=== PATIENT | female | born 1925 | race Caucasian/White ===

== ENCOUNTER 2016-11-05 11:06 | Inpatient (IN) | payer MEDICARE, OTHER ==
[~2016-11-05] VITALS: Ht 165.1 cm; Wt 57.0 kg
[~2016-11-05 11:06] MED LIST: LACTATED RINGER'S 1000 ML INJ 1,000 ML IV ONE; LIDOCAINE HCL 1% PF 5 ML AMPULE OTHER ONE; MIDAZOLAM HCL 2 MG/2 ML VIAL IV ONE; PHENYLEPH/NS 1000 MCG/10 ML SYR IV ONE; PROPOFOL 200 MG/20 ML AMP IV ONE; ROCURONIUM INJ 50 MG/5 ML SYRINGE IV PUSH ONE
[2016-11-05] MEDS ORDERED: ROPIVACAINE 0.5% PF INJ 30 ML VIAL NERV BLOCK ONE (11:50)
[2016-11-05] MEDS ORDERED: ROCURONIUM INJ 50 MG/5 ML SYRINGE IV PUSH ONE (12:00)
[2016-11-05] MEDS ORDERED: LIDOCAINE HCL 1% PF 5 ML AMPULE OTHER ONE (12:00)
[2016-11-05] MEDS ORDERED: PROPOFOL 200 MG/20 ML AMP IV ONE (12:00)
[2016-11-05] MEDS ORDERED: LACTATED RINGER'S 1000 ML INJ 1,000 ML IV ONE (12:00)
[2016-11-05] MEDS ORDERED: BUPIVACAINE/EPINEPHRINE 0.5% PF 30 ML VIAL INFIL ONE (12:00)
[2016-11-05] MEDS ORDERED: PHENYLEPH/NS 1000 MCG/10 ML SYR IV ONE (12:00)
[2016-11-05] MEDS ORDERED: MIDAZOLAM HCL 2 MG/2 ML VIAL IV ONE (12:00)
[2016-11-05] MEDS ORDERED: METF500T PO (12:01)
[2016-11-05] MEDS ORDERED: ATOR40TA16 PO (12:01)
[2016-11-05] MEDS ORDERED: EMPA1TAB5 PO (12:01)
[2016-11-05] MEDS ORDERED: GLIP10TA6 PO (12:01)
[2016-11-05] MEDS ORDERED: VITA100T65 PO (12:02)
[2016-11-05] MEDS ORDERED: HYDR25TA5 PO (12:02)
[2016-11-05] MEDS ORDERED: META48.53 PO (12:02)
[2016-11-05] MEDS ORDERED: WARF-58 PO (12:08)
[2016-11-05] MEDS ORDERED: VITACAP7 PO (12:08)
[2016-11-05] MEDS ORDERED: CALC1TAB12 PO (12:08)
[2016-11-05] MEDS ORDERED: BIOT10TA PO (12:08)
[2016-11-05] MEDS ORDERED: VITA250T3 PO (12:08)
[2016-11-05] MEDS ORDERED: RISE1TAB PO (12:08)
[2016-11-05] MEDS ORDERED: WARF-20 PO (12:08)
[2016-11-05] MEDS ORDERED: SODIUM CHLORIDE 0.9% INJ 100 ML ONE (12:14)
[2016-11-05] MEDS ORDERED: ceFAZolin INJ 1,000 MG VIAL ONE (12:14)
[2016-11-05 12:29] LABS: AUTOMATED NEUTROPHIL # 4.6 TH/MM3 (1.8-7.7); BASOPHIL # 0.1 TH/MM3 (0-0.2); BASOPHIL % 0.9 % (0.0-2.0); EOSINOPHIL % 0.8 % (0.0-4.0); HEMATOCRIT 33.2 % (35.0-46.0); HEMO FLAGS DIFF FINAL; LYMPH % 13.5 % (9.0-44.0); LYMPHOCYTE # 0.8 TH/MM3 (1.0-4.8); MEAN CELL VOLUME 88.4 FL (80.0-100.0); MEAN CORPUSCULAR HEMOGLOBIN 28.4 PG (27.0-34.0); MEAN CORPUSCULAR HGB CONC 32.1 % (32.0-36.0); NEUT % 77.8 % (16.0-70.0); PLATELET COUNT 287 TH/MM3 (150-450); RED BLOOD COUNT 3.75 MIL/MM3 (4.00-5.30); RED CELL DISTRIBUTION WIDTH 14.5 % (11.6-17.2)
[2016-11-05 12:39] LABS: APTT (PATIENT) 30.4 SEC (24.3-30.1); INTERNATIONAL NORMALIZED RATIO 1.1 RATIO; PROTHROMBIN TIME - PATIENT 12.2 SEC (9.8-11.6)
[2016-11-05 12:52] LABS: BICARBONATE 24.3 MEQ/L (21.0-32.0)
[2016-11-05] MEDS ORDERED: LACTATED RINGER'S 1000 ML INJ 1,000 ML ONE (13:08)
[2016-11-05] MEDS ORDERED: ACETAMINOPHEN 1000 MG/100 ML 100 ML IV ONE (13:09)
[2016-11-05] MEDS ORDERED: FAMOTIDINE 20 MG/2 ML VIAL ONE (13:26)
[2016-11-05] MEDS ORDERED: ceFAZolin 1,000 MG/NS 100 ML IV SCH ×2 (13:45)
[2016-11-05] MEDS ORDERED: POVIDONE IODINE 5% (ANTISEPSIS KIT) 4 APPLICATIONS EACH NARE PRN (13:45)
[2016-11-05] MEDS ORDERED: CHLORHEXIDINE GLUCONATE 2 % 1 PACK (2 CLOTHS) TOPICAL PRN (13:45)
[2016-11-05] MEDS ORDERED: SODIUM CHLORID 0.9% 500 ML IV PRN (13:45)
[2016-11-05] MEDS ORDERED: INSULIN HUMAN REGULAR 1,000 UNITS/10 ML VIAL SQ PRN (13:45)
[2016-11-05] MEDS ORDERED: METOPROLOL TARTRATE 25 MG TAB PO PRN (13:45)
[2016-11-05] MEDS ORDERED: LACTATED RINGER'S 1000 ML IV PRN (13:45)
[2016-11-05] MEDS ORDERED: DO NOT ADM ANY ANTICOAGULANT DRUGS PRN (15:04)
[2016-11-05] MEDS ORDERED: SODIUM CHLORIDE 0.9% FLUSH 10 ML FLUSH IV FLUSH PRN (16:30)
[2016-11-05] MEDS ORDERED: GLUCAGON 1 MG/ML VIAL OTHER PRN (16:45)
[2016-11-05] MEDS ORDERED: PLEASE DISCONTINUE PREVIOUS SUPPLEMENTAL SCALE INSULIN ORDERS ONE (16:45)
[2016-11-05] MEDS ORDERED: DEXTROSE 50% IN WATER 50 ML VIAL(D50) IV PUSH PRN (16:45)
[2016-11-05] MEDS ORDERED: MAGNESIUM HYDROXIDE SUSP 30 ML CUP PO PRN (16:45)
[2016-11-05] MEDS ORDERED: ACETAMINOPHEN/HYDROcodone 325 MG/5 MG TAB PO PRN (16:45)
[2016-11-05] MEDS: MEDIUM DOSE INSULIN NOVOLIN REGULAR SUPPLEMENTAL SCALE SQ SCH ×2 (17:00→20:08)
[2016-11-05] MEDS ORDERED: PSYLLIUM FIBER SF/GF 6 GM POWD PKT PO PRN (17:15)
[2016-11-05] MEDS: metFORMIN HCL 500 MG TAB PO SCH (18:06)
[2016-11-05 20:00] VITALS: BP 147/66; PULSE 73; RESP 17; TEMP 96; O2SAT 98
[2016-11-05] MEDS: HEPARIN - 10,000 UNITS/ML IV ADDITIVE IV SCH (20:00)
[2016-11-05 20:16] VITALS: O2SAT 99
[2016-11-05] MEDS: MORPHINE SULFATE 4 MG/ML INJ IV PRN (23:26)
[2016-11-06] VITALS (8 sets, daily range): BP systolic 158–198; BP diastolic 64–90; PULSE 80–98; RESP 15–18; TEMP 96.3–99; O2SAT 93–98
[2016-11-06] MEDS: MORPHINE SULFATE 4 MG/ML INJ IV PRN ×2 (05:22→11:15)
[2016-11-06] MEDS: ACETAMINOPHEN/CODEINE 300 MG/30 MG TAB PO PRN ×3 (06:58→22:26)
[2016-11-06] MEDS: glipiZIDE 10 MG TAB PO SCH ×2 (06:58→16:00)
[2016-11-06] MEDS: MEDIUM DOSE INSULIN NOVOLIN REGULAR SUPPLEMENTAL SCALE SQ SCH ×4 (08:00→21:00)
[2016-11-06] MEDS: GLYXAMBI PO SCH (09:00)
[2016-11-06] MEDS: HEPARIN - 10,000 UNITS/ML IV ADDITIVE IV SCH (09:00)
[2016-11-06] MEDS: WARFARIN SOD 2.5 MG TAB PO SCH (09:09)
[2016-11-06] MEDS: CALCIUM/VITAMIN D 250 MG/125 U TAB PO SCH (09:09)
[2016-11-06] MEDS: WARFARIN SOD 1 MG TAB PO SCH (09:09)
[2016-11-06] MEDS: DOCUSATE SODIUM 100 MG CAP PO SCH (09:10)
[2016-11-06] MEDS: metFORMIN HCL 500 MG TAB PO SCH ×3 (09:10→18:25)
[2016-11-06] MEDS: ATORVASTATIN 40 MG TAB PO SCH (09:10)
[2016-11-06] MEDS: HYDROCHLOROTHIAZIDE 25 MG TAB PO SCH (09:10)
[2016-11-06] MEDS: PANTOPRAZOLE SOD 40 MG DELAYED RELEASE TAB PO SCH (09:10)
[2016-11-06] MEDS: HEPARIN SODIUM - SQ 10,000 UNITS/ML VIAL SQ SCH ×2 (11:14→22:26)
--- NOTE | 2016-11-06 12:39 | MP ---
cc: RADHA BAR DO SUTTON, JAMES T. M.D. DATE OF SURGERY: November 05, 2016 PREOPERATIVE DIAGNOSIS Progressive ischemic necrosis right forefoot. POSTOPERATIVE DIAGNOSIS Progressive ischemic necrosis right forefoot. OPERATIVE PROCEDURE Right [id number] amputation. SURGEON Shelton Moreno MD SALES DESIGN[employer] GOSIA Solis ANESTHESIA LMA/right popliteal regional block/local. DESCRIPTION OF OPERATIVE PROCEDURE With the patient in the supine position and under LMA the right lower extremity was thoroughly prepped with Betadine and draped in a sterile fashion employing an impermeable sterile occlusive stockinette below the mid calf level which was secured in place with Coban. One gram of Ancef was administered intravenously and following a protocol time-out, the skin and subcutaneous tissue along the proposed incisional area preemptively infiltrated with 18% Marcaine with epinephrine. A circumferential incision was performed 12 cm distal to the anterior tibial tubercle in a long posterior flap fashion. The incision was deepened through the fascia, muscle fibers of the medial and lateral compartments. The tibial and fibular periosteum were mobilized proximally, the tibia transected with a Gigli saw, 45 degree inferior bevel and the fibula with a bone cutter. The tibial arteries and veins were individually ligated in continuity with free ties of 2-0 Vicryl and divided. The sciatic nerve was thoroughly infiltrated with 18% Marcaine with epinephrine, ligated with 2-0 Vicryl and divided. The remaining muscle fibers of the deep posterior compartment were sharply transected. Strict hemostasis was assured. The fascia was reapproximated with interrupted 2-0 PDS, skin reapproximated with kim, covered with Telfa and carefully protected with gauze, cotton and immobilized with a long posterior splint. Instrument, needle and sponge count were correct x2. There were no operative complications. The patient returned to the recovery room in stable condition having tolerated the procedure well. Shelton Moreno MD JTS/TLL /8:34 AM /12:14 PM
--- NOTE | 2016-11-06 15:21 | PD.CONS ---
[facility] Service Rehabilitation Medicine Consult Requested By Maurice Moreno M.D. Reason for Consult Comprehensive rehabilitation evaluation. Primary Care Physician Onesimo Zepeda, DO History of Present Illness Janna Cui is an 89-year-old female admitted [facility] 11/05/16 with progressive ischemic necrosis the right forefoot. She underwent right BKA per Dr. Moreno. She's currently receiving Lyrica and Tylenol No. 3 for pain control. She has not been out of bed at this point. Review of Systems ROS Limitations: Other (patient reporting pain) Eyes: DENIES: Diplopia Cardiovascular: DENIES: Chest pain Gastrointestinal: DENIES: Abdominal pain Neurologic: DENIES: Headache Psychiatric: DENIES: Confusion Past Family Social History Allergies: Coded Allergies: No Known Allergies (Unverified , 11/05/16) Past Medical History Diabetes mellitus Hyperlipidemia Current Medications Current Medications Medications (Trade) Dose Ordered Sig/Luis Route Start Time Stop Time Status Last Admin Lactated Ringer's 1,000 ml @ 30 mls/hr Q24H PRN IV 11/05/16 13:45 11/08/16 13:44 11/05/16 13:56 Sodium Chloride 500 ml @ 30 mls/hr [id number] PRN IV 11/05/16 13:45 11/08/16 13:44 (Lopressor) 25 mg HEATING ELEMENT REPAIRER PRN PO 11/05/16 13:45 11/08/16 13:44 (Betadine 5% Antisepsis Kit) 1 applic HEATING ELEMENT REPAIRER PRN EACH NARE 11/05/16 13:45 11/08/16 13:44 11/05/16 12:30 (Chlorhexidine 2% Cloth) 3 pack HEATING ELEMENT REPAIRER PRN TOPICAL 11/05/16 13:45 11/08/16 13:44 11/05/16 12:00 (NovoLIN R INJ) See Protocol Table ... HEATING ELEMENT REPAIRER PRN SQ 11/05/16 13:45 11/08/16 13:44 Cefazolin Sodium 1000 mg/Sodium Chloride 100 ml @ 200 mls/hr HEATING ELEMENT REPAIRER IV 11/05/16 13:45 11/08/16 13:44 (NS Flush) 2 ml UNSCH PRN IV FLUSH 11/05/16 16:30 (Morphine Inj) 2 mg Q1H PRN IV 11/05/16 16:45 11/06/16 11:15 ([place]aneview 5-325 Mg) 1 tab Q6H PRN PO 11/05/16 16:45 (Milk Of Magnesia Liq) 30 ml DAILY PRN PO 11/05/16 16:45 (Colace) 100 mg DAILY PO 11/06/16 09:00 11/06/16 09:10 (D50w (Vial) Inj) 50 ml UNSCH PRN IV PUSH 11/05/16 16:45 (Glucagon Inj) 1 mg UNSCH PRN OTHER 11/05/16 16:45 (NovoLIN R SUPPLEMENTAL SCALE) 1 ACHS SLIDING SCALE SQ 11/05/16 17:00 (Protonix) 40 mg DAILY PO 11/06/16 09:00 11/06/16 09:10 (Glucophage) 500 mg TIDPC PO 11/05/16 18:30 11/06/16 09:10 (Lipitor) 40 mg DAILY PO 11/06/16 09:00 11/06/16 09:10 (Glucotrol) 10 mg BIDAC PO 11/06/16 07:00 11/06/16 06:58 Patient Own Medication PT OWN MED: GLYXA... DAILY PO 11/06/16 09:00 (Hydrodiuril) 25 mg DAILY PO 11/06/16 09:00 11/06/16 09:10 (Metamucil Smooth Texture Sf/ Gf Pkt) 1 pkt TID PRN PO 11/05/16 17:15 (Coumadin) 1 mg DAILY PO 11/06/16 09:00 11/06/16 09:09 (Coumadin) 2.5 mg DAILY PO 11/06/16 09:00 11/06/16 09:09 (Oscal-D 250-125) 500 mg DAILY PO 11/06/16 09:00 11/06/16 09:09 (Tylenol-Codeine #3) 1 tab Q4H PRN PO 11/06/16 07:00 11/06/16 06:58 (Lyrica) 25 mg BID PO 11/06/16 21:00 (Heparin Inj) 5,000 units Q12H SQ 11/06/16 11:00 11/06/16 11:14 Family History Noncontributory to the history of present illness Social History Patient lived in [place], [place] prior to admission Exam I&O / VS Vital Signs Date Time Temp Pulse Resp B/P (MAP) Pulse Ox O2 Delivery O2 Flow Rate FiO2 11/06/16 12:00 96.4 85 16 193/86 (121) 95 11/06/16 09:13 95 21 11/06/16 08:00 97.2 83 16 188/82 (117) 95 11/06/16 04:00 97.8 86 17 186/81 (116) 98 11/06/16 00:00 97.8 80 17 159/70 (99) 97 11/05/16 20:16 99 21 11/05/16 20:00 96.0 73 17 147/66 (93) 98 11/05/16 16:00 97.4 69 14 158/68 (98) 100 Nasal Cannula 1 11/05/16 15:45 68 16 159/70 (99) 100 Nasal Cannula 2 11/05/16 15:30 68 14 160/70 (100) 100 Nasal Cannula 2 11/05/16 15:15 72 12 164/72 (102) 100 Nasal Cannula 2 General: Mild distress (Pain reported in right residual limb and generalized pain complaints) Respiratory: Lungs CTA, Non-labored respirations, BS equal Gastrointestinal: Positive Bowel Sounds, Non-Distended Cardiovascular: Normal rate, Regular Rhythm Psychiatric: Cooperative Orientation: oriented to Self, oriented to Place, oriented to Situation Neurologic: Speech (Intelligible), Other (testing limited by pain but moves both upper and left lower extremity to command) Motor: Right Lower Extremity (postop BKA dressing in place) Assessment and Plan Diagnosis: (1) Complete below knee amputation of right lower extremity ICD Codes: S88.111A - Complete traumatic amputation at level between knee and ankle, right lower leg, initial encounter Qualifiers: Encounter type: initial encounter Qualified Codes: S88.111A - Complete traumatic amputation at level between knee and ankle, right lower leg, initial encounter (2) Impaired mobility and ADLs ICD Codes: Z74.09 - Other reduced mobility Assessment 1. Right [id number] amputation 11/05/16 for progressive ischemic necrosis of the right forefoot 2. Impaired mobility and ADLs due to above 3. Postoperative pain Plan 1. Physical therapy to mobilize as surgically cleared 2. Occupational therapy to address ADLs 3. Case management for referral to inpatient rehabilitation. Family requesting PRC 4. Will follow during hospitalization and as appropriate as an outpatient to assist with obtaining prosthesis and prosthetic training Thank you for this consult Itzel Mata MD Nov 06, 2016 15:21
--- NOTE | 2016-11-06 21:04 | EKG ---
Date Performed: 11/05/2016 Time Performed: 11:53:42 PTAGE: 89 years EKG: Sinus rhythm POSSIBLE LEFT ATRIAL ENLARGEMENT BORDERLINE LEFT AXIS DEVIATION BORDERLINE ECG NO PREVIOUS TRACING DOCTOR: Joel Batista Interpretating Date/Time 11/06/2016 20:54:36
[2016-11-06] MEDS: PREGABALIN 25 MG CAP PO SCH (21:17)
[2016-11-07 00:40] VITALS: BP 177/78; PULSE 83; RESP 17; TEMP 98.7; O2SAT 94
[2016-11-07] MEDS: glipiZIDE 10 MG TAB PO SCH ×2 (07:00→17:32)
[2016-11-07 08:00] VITALS: BP 194/94; PULSE 94; RESP 15; TEMP 97.3; O2SAT 94
[2016-11-07] MEDS: MEDIUM DOSE INSULIN NOVOLIN REGULAR SUPPLEMENTAL SCALE SQ SCH ×4 (08:00→20:33)
[2016-11-07] MEDS: GLYXAMBI PO SCH (09:00)
[2016-11-07] MEDS: ACETAMINOPHEN/CODEINE 300 MG/30 MG TAB PO PRN ×3 (09:40→21:57)
[2016-11-07] MEDS: ATORVASTATIN 40 MG TAB PO SCH (09:45)
[2016-11-07] MEDS: PANTOPRAZOLE SOD 40 MG DELAYED RELEASE TAB PO SCH (09:46)
[2016-11-07] MEDS: WARFARIN SOD 2.5 MG TAB PO SCH (09:47)
[2016-11-07] MEDS: WARFARIN SOD 1 MG TAB PO SCH (09:49)
[2016-11-07] MEDS: CALCIUM/VITAMIN D 250 MG/125 U TAB PO SCH (09:50)
[2016-11-07] MEDS: DOCUSATE SODIUM 100 MG CAP PO SCH (09:50)
[2016-11-07] MEDS: HYDROCHLOROTHIAZIDE 25 MG TAB PO SCH (09:50)
[2016-11-07] MEDS: PREGABALIN 25 MG CAP PO SCH ×2 (09:51→20:24)
[2016-11-07] MEDS: HEPARIN SODIUM - SQ 10,000 UNITS/ML VIAL SQ SCH (10:00)
[2016-11-07 10:08] VITALS: O2SAT 96
[2016-11-07 12:00] VITALS: BP 188/86; PULSE 89; RESP 16; TEMP 97.7; O2SAT 94
[2016-11-07] MEDS ORDERED: LISINOPRIL 10 MG TAB PO ONE (13:00)
[2016-11-07] MEDS ORDERED: PROT40TA PO (13:26)
[2016-11-07] MEDS ORDERED: TYLETAB34 PO (13:28)
[2016-11-07 20:00] VITALS: BP 125/54; PULSE 86; RESP 20; TEMP 97.7; O2SAT 94
[2016-11-08] VITALS: BP 111/53; PULSE 81; RESP 20; TEMP 98.7; O2SAT 96
[2016-11-08 08:00] VITALS: BP 143/65; PULSE 80; RESP 16; TEMP 98.3; O2SAT 92
[2016-11-08] MEDS: MEDIUM DOSE INSULIN NOVOLIN REGULAR SUPPLEMENTAL SCALE SQ SCH ×2 (08:00→12:00)
[2016-11-08] MEDS: CALCIUM/VITAMIN D 250 MG/125 U TAB PO SCH (08:41)
[2016-11-08] MEDS: DOCUSATE SODIUM 100 MG CAP PO SCH (08:41)
[2016-11-08] MEDS: PREGABALIN 25 MG CAP PO SCH (08:41)
[2016-11-08] MEDS: ATORVASTATIN 40 MG TAB PO SCH (08:41)
[2016-11-08] MEDS: WARFARIN SOD 1 MG TAB PO SCH (08:41)
[2016-11-08] MEDS: WARFARIN SOD 2.5 MG TAB PO SCH (08:42)
[2016-11-08] MEDS: glipiZIDE 10 MG TAB PO SCH (08:42)
[2016-11-08] MEDS: HYDROCHLOROTHIAZIDE 25 MG TAB PO SCH (08:42)
[2016-11-08] MEDS: PANTOPRAZOLE SOD 40 MG DELAYED RELEASE TAB PO SCH (08:43)
[2016-11-08] MEDS: ACETAMINOPHEN/CODEINE 300 MG/30 MG TAB PO PRN ×2 (08:43→12:23)
[2016-11-08] MEDS: GLYXAMBI PO SCH (08:51)
[2016-11-08] MEDS ORDERED: LISINOPRIL 10 MG TAB PO SCH (09:00)
[2016-11-08 10:20] VITALS: O2SAT 93
[2016-11-08 12:00] VITALS: BP 100/50; PULSE 85; RESP 20; TEMP 97.7; O2SAT 98
[2016-11-08 12:12] VITALS: RESP 18
--- NOTE | 2016-11-08 13:51 | MD ---
cc: CRYSTAL ZEPEDA D.O., JAMES ADMISSION DATE: 11/05/2016 DISCHARGE DATE: [place] Visit Search.Discharge Date ADMITTING DIAGNOSES 1. Progressive, ischemic necrosis of the right forefoot. 2. Hypertension. 3. Hypercholesterolemia. 4. Type 2 diabetes mellitus with diabetic nephropathy. HISTORY This 89-year-old hypertensive type 2 diabetic female with stage III chronic kidney disease and hypercholesterolemia over the past 6 months developed progressive ischemia within the right foot eventuating in dry necrosis of the right fourth toe and unrelenting rest pain. Prior attempts at endovascular revascularization by Dr. Wolf at [facility] proved unsuccessful. She was subsequently evaluated at the [facility] in [place] and underwent repeat formal contrast angiogram. The [place] vascular surgeon concluded that her severe right tibial arterial occlusive disease was not amenable to either endovascular or open surgical revascularization. She was thus admitted for primary below-knee amputation. Historical details along with pertinent physical findings and lab data are documented in my admission summary. HOSPITAL COURSE Ms. Cui was prepared for and on the day of admission underwent primary right [id number]-peb-[id number] amputation under general anesthesia with regional popliteal nerve block. Post procedure she was maintained on her regular pre-hospitalization medications. At her Accu-Cheks were adjusted with supplemental subcu insulin as needed. She also received prophylactic subcu heparin along with appropriate analgesia. Forty-eight hours postop, she complained of no cardiopulmonary symptoms. Her incisional pain was moderate an adequately controlled with intermittent doses of Tylenol and Tylenol #3. Her systolic blood pressure was elevated. Lisinopril was restarted. The immobilizing [id number] amputation dressing was removed today and the incision is clean and appears adequately perfused. DISPOSITION Ms. Cui will transfer to [facility]. She will continue her regular pre-hospitalization medications along with Tylenol #3 as needed for pain. Wound care instructions have been written and Dr. Zepeda has discussed rehabilitation plans with ___ and [place]. I will see her in followup in my office in two weeks or sooner if needed. MD MELLO Velazquez/STEPAN /4:06 PM /1:31 PM
== END 2016-11-08 15:17 | DRG 240 ==
LOC: N07B 11:06 → N07A 17:01 → UNDODISIN 11-08 15:17
PROVIDERS: ADMIT Surgery Vascular Surgery; ATTEND Surgery Vascular Surgery
PROC: 0Y6H0Z1 Detachment at Right Lower Leg, High, Open Approach (ICD-10-PCS; principal; 2016-11-06)
DX: E11.52 Type 2 diabetes mellitus with diabetic peripheral angiopathy with gangrene (principal); I70.261 Atherosclerosis of native arteries of extremities with gangrene, right leg; E11.22 Type 2 diabetes mellitus with diabetic chronic kidney disease; N18.3 Chronic kidney disease, stage 3 (moderate); Z79.84 Long term (current) use of oral hypoglycemic drugs; E78.00 Pure hypercholesterolemia, unspecified; I10 Essential (primary) hypertension
CPT/HCPCS: 80048; 82948; 85025; 85610; 85730; 86850; 86900; 86901; 88307; 88311; 93005; J0131; J0690; J1644; J2250; J2270; J2370; J2795; J3010; J7120